=== PATIENT | male | born 1955 | race Caucasian/White ===

== ENCOUNTER 2019-06-04 08:20 | Outpatient (CLI) | payer OTHER ==
--- NOTE | 2019-06-04 11:39 | CT ---
CT CHEST WITH IV CONTRAST: HISTORY: Malignant neoplasm of the urinary bladder. The patient has been treated surgically. Chest pain and ba ck pain. COMPARISON: None. FINDINGS: No evidence of mediastinal, hilar or axillary mass or lymphadenopathy is seen. There are vascular megha cifications without evidence of aneurysmal dilatation of the thoracic aorta. No pleural or pericardia l effusions are identified. There is a 4 mm solid parenchymal nodule in the right middle lobe and a 4 mm peripheral solid nodule in the left lower lobe. Upper abdominal tomograms are unremarkable. There are degenerative changes in the spine. No osteolytic or osteoblastic lesions are present. There is metallic hardware in the lower cervical spine. IMPRESSION: Tiny lung nodules. A follow-up examination is recommended in six months. CODE T CODE LN POS: OFF
== END 2019-06-04 08:21 | disposition home or self-care (01) ==
LOC: NAV CT 08:20
DX: C67.9 Malignant neoplasm of bladder, unspecified (principal); R91.8 Other nonspecific abnormal finding of lung field
CPT/HCPCS: 71260

== ENCOUNTER 2019-06-19 08:06 | Emergency (ER) | payer OTHER ==
[2019-06-19] MEDS ORDERED: Oseltamivir 75 MG CAP ONE (09:04)
[2019-06-19 09:18] LABS: #Basophils 0.1 thou/uL (0.0-0.2); #Lymphocytes 1.5 thou/uL (1.20-3.40); #Monocytes 1.1 thou/uL (0.11-0.59); #Neutrophils 4.6 thou/uL (1.40-6.50); %Basophils 1.2 % (0.0-1.0); %Lymphocytes 20.6 % (21.0-51.0); %Monocytes 15.2 % (0.0-10.0); Hemoglobin 14.6 g/dL (14.0-18.0); Mean Corpuscular HGB CONC 33.7 g/dL (32.0-36.0); Mean Corpuscular Hemoglobin 30.9 pg (27.0-31.0); Mean Corpuscular Volume 91.7 fL (78.0-98.0); Mean Platelet Volume 7.4 fL (7.4-10.4); Platelet Count 174 thou/uL (130-400); RBC Distribution Width 12.5 % (11.5-14.5); Red Blood Cell (RBC) Count 4.72 mill/uL (4.70-6.10); White Blood Cell (WBC) Count 7.4 thou/uL (4.8-10.8)
[2019-06-19 09:22] LABS: ALT (SGPT) 24 U/L (8-55); AST (SGOT) 38 U/L (5-34); Albumin 4.1 g/dL (3.4-4.8); Alkaline Phosphatase 53 U/L (40-110); Anion Gap 15 mmol/L (10-20); BUN (Urea Nitrogen) 22 mg/dL (8.4-25.7); Bilirubin, Total 0.4 mg/dL (0.2-1.2); Calc. Creatinine Clearance 0 mL/min (70-130); Calcium 8.4 mg/dL (7.8-10.44); Carbon Dioxide 22 mmol/L (23-31); Chloride 104 mmol/L (98-107); Estimated GFR-MDRD 80; Globulin 3.3 g/dL (2.4-3.5); Glucose 119 mg/dL (80-115); Potassium 4.2 mmol/L (3.5-5.1); Protein, Total 7.4 g/dL (5.8-8.1); Sodium 137 mmol/L (136-145)
--- NOTE | 2019-06-19 09:23 | RAD ---
PA AND LATERAL VIEWS CHEST: Date: 06/19/19 HISTORY: Fever, cough, shortness of breath. FINDINGS: The heart size is normal. The lungs are expanded without focal areas of consolidation, pneumothoraces , or pleural effusions. There are postop changes of metallic hardware in the lower cervical spine. IMPRESSION: No radiographic evidence of acute cardiopulmonary process. POS: OFF
== END 2019-06-19 10:17 | disposition short-term general hospital (02) ==
LOC: NAV ERS 08:06
DX: J11.1 Influenza due to unidentified influenza virus with other respiratory manifestations (principal); R09.02 Hypoxemia; F17.200 Nicotine dependence, unspecified, uncomplicated; Z85.51 Personal history of malignant neoplasm of bladder
CPT/HCPCS: 71046; 80053; 83605; 85025; 87040; 87804; 93005; 94640; J7620